=== PATIENT | male | born 1990 | race American Indian/Alaskan Native ===

== ENCOUNTER 2017-06-12 22:29 | Emergency (ER) | payer BC, OTHER ==
[2017-06-12 22:39] VITALS: RESP 18; TEMP 97.9
--- NOTE | 2017-06-12 22:48 | EDPHY ---
H & P Stated Complaint: c/o SOB x 4 days, exacerbated today, HX asthma. HPI/ROS: HPI CHIEF COMPLAINT: Shortness of breath, nonproductive cough, wheezing, asthma, left ear pain HISTORY OF PRESENT ILLNESS: This patient very pleasant 26-year-old male he does have significant past medical history for asthma, no other medical history he presents emergency room as he states he has been feeling short of breath worse over the past 4 days however he just arrived today from [place]. He is here for vacation. Will be here till Monday or the end of the week. He states he thought his asthma started acting up he took his nebulizer prior to come to the emergency room this did improve his respiratory status. He states he is now feeling better as he entered the emergency room additionally tells me his left ear hurts him and he has a lymph node that swollen behind his left ear. He does state he has had a nonproductive cough with somewhat of a runny nose. He thinks he may have hold. Denies chest pain, fever, vomiting abdominal pain or back pain. Patient for been intubated. Past Medical History: Asthma Past Surgical History: No recent surgery Social History: Denies use of drugs alcohol tobacco did do edible marijuana earlier. Lives in [place]. Unemployed. Family History: Noncontributory ROS REVIEW OF SYSTEMS: A comprehensive 10 point review of systems is otherwise negative aside from elements mentioned in the history of present illness. Exam Constitutional appears nontoxic triage nursing summary reviewed, vital signs reviewed, awake/alert. Eyes normal conjunctivae and sclera, EOMI, PERRLA. HENT left TM is erythematous and bulging, right TM normal, dry mucous membranes, posterior pharynx unremarkable, left posterior region 1 swollen lymph node present. normal inspection, atraumatic, moist mucus membranes, no epistaxis, neck supple/ no meningismus, no raccoon eyes. Respiratory clear to auscultation bilaterally, normal breath sounds, no respiratory distress, no wheezing. Cardiovascular rate normal, regular rhythm, no murmur, no edema, distal pulses normal. Gastrointestinal soft, non-tender, no rebound, no guarding, normal bowel sounds, no distension, no pulsatile mass. Genitourinary no CVA tenderness. Musculoskeletal no midline vertebral tenderness, full range of motion, no calf swelling, no tenderness of extremities, no meningismus, good pulses, neurovascularly intact. Skin pink, warm, & dry, no rash, skin atraumatic. Neurologic awake, alert and oriented x 3, AAOx3, moves all 4 extremities equally, motor intact, sensory intact, CN II-XII intact, normal cerebellar, normal vision, normal speech. Psychiatric normal mood/affect. Heme/Lymph/Immune no lymphadenopathy. Differential Diagnosis: Includes but is not limited to in a particular order acute asthma, reactive airway disease, pneumonia, viral illness, high altitude pulmonary edema, pneumothorax, otitis media Medical Decision Making: Plan for this patient two view chest x-ray, DuoNeb breathing treatment, prednisone 60 mg p.o.. Re-evaluation: Patient distally tells me he can take Keflex. He has allergies to doxycycline, penicillin, sulfa. Mainly rash. He has had cephalosporins before. 1248AM: I did re-evaluate the patient at this time. Resting comfortably. No acute distress. He feels much better after DuoNeb breathing treatment. Prescription given for Keflex, prednisone, albuterol. He does understand why he is visiting [facility] to return emergency room if he feels more short of breath. Chest x-ray has been reviewed I do not appreciate a pneumothorax infiltrate. Source: Patient - Personal History Current Tetanus/Diphtheria Vaccine: Unsure Current Tetanus Diphtheria and Acellular Pertussis (TDAP): Unsure - Medical/Surgical History Hx Asthma: Yes Hx Chronic Respiratory Disease: No Hx Diabetes: No Hx Cardiac Disease: No Hx Renal Disease: No Hx Cirrhosis: No Hx Alcoholism: No Hx HIV/AIDS: No Hx Splenectomy or Spleen Trauma: No Other PMH: Asthma. - Social History Smoking Status: Never smoked Constitutional: Initial Vital Signs Temperature (C) 36.6 C 06/12/17 22:31 Heart Rate 86 06/12/17 22:31 Respiratory Rate 18 06/12/17 22:31 Blood Pressure 145/87 H 06/12/17 22:31 O2 Sat (%) 95 06/12/17 22:31 O2 Delivery Mode Room Air Allergies/Adverse Reactions: doxycycline Allergy (Verified 06/12/17 22:39) Penicillins Allergy (Verified 06/12/17 22:39) Sulfa (Sulfonamide Antibiotics) Allergy (Verified 06/12/17 22:39) Home Medications: Medication Instructions Recorded Albuterol 06/12/17 Albuterol [Proventil Inhaler HFA 1 - 2 puffs IH Q4H #1 mdi 06/12/17 (*)] Cephalexin [Keflex (*)] 500 mg PO TID #21 cap 06/12/17 predniSONE 60 mg PO DAILY #15 tab 06/12/17 Medical Decision Making - Data Points Medications Given: Discontinued Medications Albuterol/Ipratropium (Duoneb) 3 ml IH EDNOW ONE Stop: 06/12/17 22:55 Last Admin: 06/12/17 23:13 Dose: 3 ml Cephalexin HCl (Keflex) 500 mg PO EDNOW ONE PRN Reason: Protocol Stop: 06/12/17 23:01 Last Admin: 06/12/17 23:11 Dose: 500 mg Prednisone (Prednisone) 60 mg PO EDNOW ONE Stop: 06/12/17 22:55 Last Admin: 06/12/17 23:13 Dose: 60 mg Departure - Departure Disposition: Home, Routine, Self-Care Clinical Impression: Viral syndrome Asthma Qualifiers: Asthma severity: mild intermittent Asthma complication type: with acute exacerbation Qualified Code(s): J45.21 - Mild intermittent asthma with (acute) exacerbation Otitis media Qualifiers: Otitis media type: suppurative Chronicity: acute Laterality: left Recurrence: not specified as recurrent Spontaneous tympanic membrane rupture: without spontaneous rupture Qualified Code(s): H66.002 - Acute suppurative otitis media without spontaneous rupture of ear drum, left ear Condition: Good Instructions: Asthma (ED), Otitis Media (ED), Viral Syndrome (ED) Additional Instructions: 1. Drink lots of fluids stay well-hydrated. 2. Return emergency room immediately if you have worsening trouble breathing while your here in [place]. 3. Albuterol inhaler 2 puffs every 4 hours as needed. Prednisone for 5 days. Amoxicillin. Referrals: NONE *PRIMARY CARE P,. [Primary Care Provider] - As per Instructions Prescriptions: Albuterol [Proventil Inhaler HFA (*)] 1 - 2 puffs IH Q4H #1 mdi Cephalexin [Keflex (*)] 500 mg PO TID #21 cap predniSONE 60 mg PO DAILY #15 tab
[2017-06-12] MEDS ORDERED: predniSONE 20 MG TAB PO ONE (22:54)
[2017-06-12] MEDS ORDERED: IPRATROPIUM/ALBUTEROL 3 ML DEYVIAL IH ONE (22:54)
[2017-06-12] MEDS ORDERED: CEPHALEXIN 500 MG CAP PO ONE (23:00)
[2017-06-13 01:08] VITALS: BP 126/74; PULSE 94; O2SAT 93
== END 2017-06-13 01:07 | disposition home or self-care (01) ==
DX: J45.21 Mild intermittent asthma with (acute) exacerbation (principal); B34.9 Viral infection, unspecified; H66.002 Acute suppurative otitis media without spontaneous rupture of ear drum, left ear